=== PATIENT | male | born 1995 | race Caucasian/White ===

== ENCOUNTER 2018-10-08 16:45 | Emergency (ER) | payer SELFPAY ==
[2018-10-08] VITALS (21 sets, daily range): BP systolic 102–128; BP diastolic 61–77; PULSE 64–87; RESP 12–26; TEMP 37.1–37.5; O2SAT 19–100
[2018-10-08 17:33] LABS: Abs Immature Grans 0.02 k/cumm (0.0-0.09); Absolute Eosinophil Count 0.04 k/cumm (0.0-0.7); Absolute Lymphocyte Count 1.36 k/cumm (1.2-3.4); Absolute Monocyte Count 0.58 k/cumm (0.11-0.7); Absolute Neutrophil Count 5.83 k/cumm (1.2-6.7); Eosinophils % 0.5; HCT 45.2 % (40.0-50.0); HGB 15.5 g/dL (13.5-17.5); Immature Grans % 0.3; Lymphocytes % 17.4; Mean Corp. HGB Concentration 34.3 g/dL (32.0-36.0); Mean Corpuscular Hemoglobin 32.3 pg (27.0-33.0); Mean Corpuscular Volume 94.2 fL (80-95); Mean Platelet Volume 9.6 fL (8.0-11.0); Monocytes % 7.4; Neutrophils % 74.4; Platelet Count 226 x1000/uL (130-400); RBC Distribution Width 12.7 % (11.8-14.1); White Blood Cell Count 7.83 k/cumm (4.4-10.8)
[2018-10-08] MEDS: Lactated Ringers 1,000 ML 1000 ML IV (17:45)
[2018-10-08 17:58] LABS: ALT 34 U/L (16-63); AST 24 U/L (15-37); Albumin 4.7 g/dL (3.4-5.0); Alkaline Phosphatase 74 U/L (46-116); BUN 19 mg/dL (7-18); Bilirubin, Total 0.9 mg/dL (0.2-1.0); CREATININE 0.91 mg/dL (0.70-1.30); Calcium 9.1 mg/dL (8.5-10.1); Chloride 104 mmol/L (98-107); Glucose 111 mg/dL (70-100); Potassium 3.6 mmol/L (3.5-5.1); Sodium 143 mmol/L (136-145); TSH (W/Ref FT4) 0.91 uIU/mL (0.36-3.74); Total Protein 8.2 g/dL (6.4-8.2)
[2018-10-08 18:02] LABS: Troponin I < 0.05 ng/mL (0.00-0.06)
[2018-10-08 18:04] LABS: D-Dimer 341 ng/mlFEU (<500)
--- NOTE | 2018-10-08 18:15 | DI.RAD_ITS ---
SYMPTOMS/DIAGNOSIS: PALPITATIONS, SHORTNESS OF BREATH PA AND LATERAL CHEST: There are no prior comparison exams. The cardiac and mediastinal contours have a normal appearance. The lungs are well inflated and clear. No infiltrate, effusion or pneumothorax is seen. There are no thoracic compression fractures. IMPRESSION: Negative chest x-ray.
--- NOTE | 2018-10-08 18:46 | ED.GENADUL_ITS ---
Discharge Plan Disposition Patient Disposition: HOME Discharge Details Chief Complaint: Palpitatns Clinical Impression: Heart palpitations Primary Care Provider: None,None ED Provider: Gustavo Galaviz Home Meds and New Rx's Prescriptions: No Action albuterol sulfate [Ventolin HFA] 90 mcg/actuation HFA aerosol inhaler 2 puff IH .Q4-Q6h PRN (Reason: shortness of breath or wheezing) Qty: 8.5 RF: 2 Discharge Instructions Instructions: Palpitations (ED) Additional Instructions: Please avoid caffeinated products. Get plenty of rest and avoid exertional activities over the next couple weeks. Please contact your primary care physician to arrange follow-up. If symptoms persist, you may need additional diagnostic testing including prolonged cardiac monitoring. Please call to establish primary care follow-up as soon as possible. Return to the ER for any worsening or new concerning symptoms. Discharge Data Discharge Date/Time-TO BE ENTERED AT DEPARTURE: 10/08/18 19:20 Medical Decision Making 23-year-old male with history of chronic intermittent palpitations, here today with more persistent palpitations over the past 3 days. Patient also with dyspnea associated with palpitations. Patient is saturating well in no respiratory distress. He is not tachycardic and is normotensive. Cardiac and pulmonary auscultation are unremarkable. ECG was reviewed and interpreted by me: Normal sinus rhythm 72 bpm, normal axis, no signs of Brugada, WPW or hokum, nondiagnostic. Labs reviewed: Patient has normal electrolytes, normal TSH, normal d-dimer. Mild elevation of anion gap. Suspect secondary to mild dehydration. Patient was given IV fluid bolus of 1 L. Chest x-ray was reviewed and interpreted by radiology: No acute cardiopulmonary process. Patient was observed on the monitor in the emerge department and demonstrated no ectopy or arrhythmia. Patient was reassessed: He had no recurrent palpitations here and has remained stable. All results were discussed with the patient. Patient was encouraged to follow-up with a primary care physician and will need assistance getting plugged in here locally as he recently moved to the area. I will put him on care management list to help arrange timely follow-up. Patient will likely benefit from outpatient Holter monitoring. Disposition decision was made weighing the risks and benefits of hospitalization versus outpatient treatment, the risk for further decompensation, and the patient's wishes. The patient was stable and requested discharge. Prior to discharge, my usual and customary return precautions were reviewed with the patient - this included follow-up instructions and reason to return to the emergency department if condition worsens, does not improve as expected, or other new concerns arise. HPI General Mode of arrival: ambulatory . Date/Time Provider Initiated Documentation: 10/08/18 17:05 . Limitations to Documentation: no limitations . Information obtained by: patient . HPI Narrative: 23-year-old male with history of intermittent chronic palpitations presents with chief complaint of palpitations. Patient notes he has not been sleeping much over the past few days, has been exerting himself with a move, and has been drinking fair amount of caffeine. Patient notes that 2 days ago he started to experience some palpitations. Palpitations have been intermittent but persistent. Palpitations are moderate to severe at times and feel like his heart is pounding. Patient notes with his chronic intermittent palpitations, they seem to be brought on with certain positions of his body which he tries to avoid including bending in certain directions and that when he does have them he is typically able to control them with breathing exercises. He has been unable to control palpitations over the past couple days with his typical breathing exercises. Patient denies chest pain but has had some shortness of breath over the past couple days. Patient denies recent tick bite. Related Data Home Medications Medication Instructions Recorded Confirmed albuterol sulfate 90 mcg/actuation 2 puff IH .Q4-Q6h PRN #8.5 gm 10/11/18 10/11/18 aerosol inhaler Previous Rx's Medication Instructions Recorded albuterol sulfate 90 mcg/actuation 2 puff IH .Q4-Q6h PRN #8.5 gm 10/11/18 aerosol inhaler Allergies Allergy/AdvReac Type Severity Reaction Status Date / Time No Known Allergies Allergy Unverified 10/08/18 16:51 General Stated Complaint: Palpitatns KATHYA: 2 Review of Systems Review of Systems All systems reviewed & are unremarkable except as noted in HPI and below Constitutional Denies fever(s) and Denies weakness Cardiovascular Denies chest pain, Denies syncope, Denies lightheadedness, Reports palpitations and Reports dyspnea Respiratory Denies cough and Reports dyspnea Gastrointestinal Denies abdominal pain, Denies nausea and Denies vomiting Integumentary/Breasts Denies rash Neurologic Denies syncope and Denies weakness Endocrine Reports palpitations PFSH Medical History (Updated 10/11/18 @ 14:28 by Tom Ba) Intermittent palpitations (Acute) Social History Smoking/Tobacco Use Status: Current every day Alcohol Intake: never Drug use: Occasionally Substance use type: marijuana Details: no cigarettes passed few days Do you feel safe at home: Yes Do you feel safe in your relationship?: Yes Exam Const General: cooperative and no acute distress HENMT Head: normocephalic Mouth: mucous membranes dry Eyes Conjunctivae: normal conjunctivae Sclera: normal sclerae Neck Neck: trachea midline and supple Resp Auscultation: clear to auscultation bilaterally, no rales, no rhonchi and no wheezes Cardio Jugular venous pressure: no JVD Rate: regular rate and not tachycardic Rhythm: regular rhythm Heart Sounds: no click, no gallops, no murmurs and no rubs GI Palpation: soft, not firm, no guarding, no masses, not rigid and nontender Skin General skin exam: no rashes or lesions noted Neuro General: alert, awake, oriented x3 and tone normal Extrem General: no edema Psych Appearance: grossly normal Mental Status: mental status grossly normal Course Vital Signs Respiratory Rate 17 10/08/18 16:40 Pulse Oximetry 97 10/08/18 16:40 Temperature 37.1 C 10/08/18 16:48 Temperature Source Skin 10/08/18 16:48 Pulse 64 10/08/18 18:31 Pulse 73 10/08/18 18:31 Respiratory Rate 18 10/08/18 18:31 Respiratory Effort 10/08/18 16:51 Blood Pressure 102/61 10/08/18 18:31 Blood Pressure Mean 71 10/08/18 18:31 Pulse Oximetry 98 10/08/18 18:31 Oxygen Delivery Method Room Air 10/08/18 16:48 Oxygen Flow Rate 0 10/08/18 16:48 Pain Level 0 10/08/18 16:48 Lab/Test Results Lab/Test Results: Laboratory Tests Range/Units 10/08/18 10/08/18 10/08/18 16:52 16:52 16:52 WBC (4.4-10.8) k/cumm 7.83 RBC (4.50-6.00) m/cumm 4.80 Hgb (13.5-17.5) g/dL 15.5 Hct (40.0-50.0) % 45.2 MCV (80-95) fL 94.2 MCH (27.0-33.0) pg 32.3 MCHC (32.0-36.0) g/dL 34.3 RDW (11.8-14.1) % 12.7 Plt Count (130-400) x1000/uL 226 MPV (8.0-11.0) fL 9.6 Immature Gran % 0.3 Neutrophils % 74.4 Lymphocytes % 17.4 Monocytes % 7.4 Eosinophils % 0.5 Basophils % 0.0 Absolute Neutrophils (1.2-6.7) k/cumm 5.83 Absolute Lymphocytes (1.2-3.4) k/cumm 1.36 Absolute Monocytes (0.11-0.7) k/cumm 0.58 Absolute Eosinophils (0.0-0.7) k/cumm 0.04 Absolute Basophils (0.0-0.2) k/cumm 0.00 D-Dimer (<500) ng/mlFEU 341 Sodium (136-145) mmol/L 143 Potassium (3.5-5.1) mmol/L 3.6 Chloride (98-107) mmol/L 104 Carbon Dioxide (21.0-32.0) mmol/L 26.0 Anion Gap (3-11) mmol/L 13.0 H BUN (7-18) mg/dL 19 H Creatinine (0.70-1.30) mg/dL 0.91 Estimated GFR/1.73 m2 (mL/min/1.73m2) >= 60.00 Glucose (70-100) mg/dL 111 H Calcium (8.5-10.1) mg/dL 9.1 Magnesium (1.8-2.4) mg/dL 2.0 Total Bilirubin (0.2-1.0) mg/dL 0.9 AST (15-37) U/L 24 ALT (16-63) U/L 34 Alkaline Phosphatase (46-116) U/L 74 Troponin I (0.00-0.06) ng/mL < 0.05 Total Protein (6.4-8.2) g/dL 8.2 Albumin (3.4-5.0) g/dL 4.7 TSH (0.36-3.74) uIU/mL 0.91
--- NOTE | 2018-10-08 18:56 | DI.VRAD_ITS ---
EXAM: XR Chest, 2 Views EXAM DATE/TIME: 10/08/2018 6:15 PM CLINICAL HISTORY: 23 years old, male; Shortness of breath; Patient HX: SOB, and heart flutter. Smoker. TECHNIQUE: Imaging protocol: XR of the chest, 2 views. COMPARISON: No relevant prior studies available. FINDINGS: Lungs: Unremarkable. No consolidation. Pleural space: Unremarkable. No pleural effusion. No pneumothorax. Heart/Mediastinum: Unremarkable. No cardiomegaly. Bones/joints: Unremarkable. IMPRESSION: No acute cardiopulmonary process. Dictated and Authenticated by: Los Raymond MD. Ordering:CHRISTEN Chen MD
== END 2018-10-08 19:20 | disposition home or self-care (01) ==
PROVIDERS: Emergency Provider Student in an Organized Health Care Education/Training Program
DX: R00.2 Palpitations (principal); R06.00 Dyspnea, unspecified
CPT/HCPCS: 36415; 80053; 93005; 96360; 99284; 71046; 83735; 84443; 84484; 85025; 85379; 93010; 99285

== ENCOUNTER 2018-10-17 00:24 | Outpatient (CLI) | payer SELFPAY ==
--- NOTE | 2018-10-17 07:30 | MERGE_ITS ---
*[facility]* *[facility]* [address] [place] [address] Date of study: 10/17/2018 Transthoracic Echocardiography M-mode, complete 2D, complete spectral Doppler, and color Doppler *STUDY CONCLUSIONS* Summary: 1. Left ventricle: The cavity size was normal. Wall thickness was normal. Systolic function was normal. The estimated ejection fraction was 60-65%. Wall motion was normal; there were no regional wall motion abnormalities. 2. Right ventricle: The cavity size was normal. Wall thickness was normal. Systolic function was normal. *PATIENT PRESENTATION* Height: 167.6cm (66in ) S/D Pressure: 113 / 64 Weight: 54.4kg (119.7lb ) BSA: 1.59m^2 Test start time: 07:40 AM. Test stop time: 08:40 AM. PERFORMING Unknown PERFORMING [facility] BATCH ATTENDANT Aliya Fitzpatrick RT (Reginaldo)(CT), RDCS CONSULTING Tom Ba ORDERING Tom Ba REFERRING Tom Ba *PROCEDURE DATA* Procedure information: The patient was identified by two identifiers. This study was interpreted by [facility]. Pertinent images and digital data are archived for permanent storage and are available for subsequent review. No prior study was available for comparison. Study status: Routine. Transthoracic echocardiography. M-mode, complete 2D, complete spectral Doppler, and color Doppler. A Transthoracic Echocardiogram was performed. Scanning was performed from the parasternal, apical, subcostal, and suprasternal notch acoustic windows. Images were obtained using an [id number] cardiac ultrasound machine. Image quality was good. Study completion: The patient tolerated the procedure well. There were no complications. History: PMH: Intermittent palpitations r00.2. *CARDIAC ANATOMY* Left ventricle: The cavity size was normal. Wall thickness was normal. Systolic function was normal. The estimated ejection fraction was 60-65%. Wall motion was normal; there were no regional wall motion abnormalities. Diastolic parameters were normal. Aortic valve: Trileaflet; normal thickness leaflets. Mobility was not restricted. Doppler: Transvalvular velocity was within the normal range. There was no stenosis. There was no significant regurgitation. VTI ratio of LVOT to aortic valve: 0.78. Valve area (VTI): 2.5cm^2. Indexed valve area (VTI): 1.6cm^2/m^2. Peak velocity ratio of LVOT to aortic valve: 0.73. Valve area (Vmax): 2.4cm^2. Indexed valve area (Vmax): 1.5cm^2/m^2. Mean velocity ratio of LVOT to aortic valve: 0.78. Valve area (Vmean): 2.5cm^2. Indexed valve area (Vmean): 1.6cm^2/m^2. Mean gradient (S): 3.9mm Hg. Peak gradient (S): 7.9mm Hg. Aorta: Aortic root: The aortic root was normal in size. Ascending aorta: The ascending aorta was normal in size. Mitral valve: Structurally normal valve. Mobility was not restricted. Doppler: Transvalvular velocity was within the normal range. There was no evidence for stenosis. There was no significant regurgitation. Valve area by pressure half-time: 4cm^2. Indexed valve area by pressure half-time: 2.5cm^2/m^2. Peak gradient (D): 2mm Hg. Left atrium: The atrium was normal in size. Right ventricle: The cavity size was normal. Wall thickness was normal. Systolic function was normal. Pulmonic valve: Structurally normal valve. Doppler: Transvalvular velocity was within the normal range. There was no evidence for stenosis. There was no significant regurgitation. Peak gradient (S): 3.9mm Hg. Tricuspid valve: Structurally normal valve. Doppler: Transvalvular velocity was within the normal range. There was no evidence for stenosis. There was no significant regurgitation. Pulmonary artery: Systolic pressure could not be accurately estimated. Right atrium: The atrium was normal in size. Pericardium: There was no pericardial effusion. Systemic veins: Inferior vena cava: Well visualized. The vessel was patent and normal in size. The respirophasic diameter changes were in the normal range (greater than or equal to 50%). Baseline ECG: Normal sinus rhythm. Measurements Left ventricle Value Reference LV ID, ED, PLAX 5.1 cm 3.5 - 6.0 LV ID, ES, PLAX 3.4 cm 2.1 - 4.0 LV PW thickness, ED, PLAX 0.9 cm LV end-diastolic volume, 1-p A2C 87 ml LV ejection fraction, 1-p A2C 57 % LV end-diastolic volume, 1-p A4C 65 ml LV ejection fraction, 1-p A4C 61 % LV e', lateral 0.201 m/sec LV E/e', lateral 4 LV e', medial 0.148 m/sec LV E/e', medial 5 LV e', average 0.174 m/sec LV E/e', average 4 Ventricular septum Value Reference IVS thickness, ED, PLAX 0.8 cm LVOT Value Reference LVOT ID, A-P 2.0 cm LVOT area 3.3 cm^2 LVOT peak velocity, S 1.02 m/sec LVOT mean velocity, S 0.73 m/sec LVOT VTI, S 18.8 cm LVOT peak gradient, S 4.2 mm Hg LVOT mean gradient, S 2.5 mm Hg Stroke volume (SV), LVOT DP 61 ml Stroke index (SV/bsa), LVOT DP 39 ml/m^2 Aortic valve Value Reference Aortic valve peak velocity, S 1.4 m/sec Aortic valve mean velocity, S 0.9 m/sec Aortic valve VTI, S 24.0 cm Aortic mean gradient, S 3.9 mm Hg Aortic peak gradient, S 7.9 mm Hg VTI ratio, LVOT/AV 0.78 Aortic valve area, VTI 2.5 cm^2 Velocity ratio, peak, LVOT/AV 0.73 Aortic valve area, peak velocity 2.4 cm^2 Velocity ratio, mean, LVOT/AV 0.78 Aortic valve area, mean velocity 2.5 cm^2 Aortic valve area/bsa, mean velocity 1.6 cm^2/m^2 Aorta Value Reference Aortic root ID, ED 2.8 cm Ascending aorta ID, A-P, S 2.8 cm RVOT Value Reference RVOT VTI, S 23.0 cm Left atrium Value Reference LA ID, A-P, ES 2.2 cm LA ID/bsa, A-P 1.4 cm/m^2 <=2.2 LA volume/bsa, ES, 1-p A4C 32 ml/m^2 LA volume, ES, 2-p 34 ml LA volume/bsa, ES, 2-p 21 ml/m^2 LA/aortic root ratio 0.78 Mitral valve Value Reference Mitral E-wave peak velocity 0.71 m/sec Mitral A-wave peak velocity 0.41 m/sec Mitral deceleration time 191 ms 150 - 230 Mitral pressure half-time 55 ms Mitral peak gradient, D 2 mm Hg Mitral E/A ratio, peak 1.73 Mitral valve area, PHT, DP 4 cm^2 Tricuspid valve Value Reference Tricuspid regurg peak velocity 2.3 m/sec Tricuspid peak RV-RA gradient 20.8 mm Hg Right atrium Value Reference RA area, ES, A4C 12.2 cm^2 8.3 - 19.5 Pulmonic valve Value Reference Pulmonic peak gradient, S 3.9 mm Hg Legend: (L) and (H) sly values outside specified reference range. I have personally reviewed the images and have reviewed and edited the reported findings. Electronically signed by Raji Peng 10/17/2018 10:01
== END 2018-10-17 00:44 ==
PROVIDERS: Visit Provider Family Medicine
DX: R00.2 Palpitations (principal)
CPT/HCPCS: 93306

== ENCOUNTER → 2018-10-19 08:00 | Outpatient (CLI) | payer SELFPAY ==
--- NOTE | 2018-10-24 12:10 | HOLTER_ITS ---
DATE OF DICTATION: October 24, 2018 STUDY INDICATION: Palpitations. REQUESTING PROVIDER: Not available. FINDINGS: The patient was monitored for 2 days. Baseline sinus rhythm. Average heart rate 73 bpm, range 45 to 152 bpm. One PVC and four PAC's. No ventricular or supraventricular tachycardia. No pauses greater than 3 seconds. No high-degree heart block. Two patient events. None of these events correlated with arrhythmias. FINAL INTERPRETATION: Normal study. Symptoms do not correlate with arrhythmias.
== END ==
PROVIDERS: Visit Provider Family Medicine
DX: R00.2 Palpitations (principal)
CPT/HCPCS: 93225

== ENCOUNTER → 2018-10-23 17:26 | Outpatient (CLI) | payer SELFPAY | PROVIDERS: Visit Provider Family Medicine | DX: R00.2 Palpitations (principal) | CPT/HCPCS: 93226 ==